=== PATIENT | female | born 1985 | race Caucasian/White ===

== ENCOUNTER 2021-12-22 10:11 | Emergency (ER) | payer OTHER, SELFPAY ==
--- NOTE | ~2021-12-22 | XR_ITS ---
EXAMINATION: XR finger 4th LT min 2V INDICATION: Left fourth finger pain TECHNIQUE: Four views of the left fourth finger are obtained. COMPARISON: None available FINDINGS: There is soft tissue swelling. Bone alignment is normal. There is no fracture. The joint sp aces are normal. IMPRESSION: 1. Soft tissue swelling without acute osseous abnormality. Reviewed, dictated and finalized at location A.
[2021-12-22 10:18] VITALS: BP 135/91; PULSE 75; RESP 18; TEMP 37.1; O2SAT 100
--- NOTE | 2021-12-22 10:36 | ED.UPPEXIN ---
HPI - Extremity Injury (Upper) General Chief Complaint: Extremity Injury, Upper Stated Complaint: Left Hand Injury Time Seen by Provider: 12/22/21 10:30 Source: patient, RN notes reviewed and old records reviewed Mode of arrival: ambulatory Limitations: no limitations History of Present Illness HPI narrative: 36 year old female who presents to [facility] with injury to her left 4th finger which occurred last evening at her home. She states that she went out her door into the garage and her new puppy slipped out the door also. She reports that she was trying to catch the dog and tripped down the steps hitting her left 4th finger on the car. She states that she thinks she hyperextended her finger and now has pain to proximal aspect of finger with swelling noted. Patient states at rest it is not painful but with movement it is a 6/10. Patient has applied ice to her finger and also has taken some Tylenol MD complaint: injury to: left and finger (left 4th finger) Onset (ago): day(s) (last evening) Other Extremity Injury: Left: fingers (4th finger) Other injuries: none Handedness: right Place: outdoors Severity: moderate Severity scale (1-10): 6 (with movement) Relieving factors: rest Exacerbating factors: movement of extremity Context: direct blow Associated symptoms: denies other symptoms Treatments prior to arrival: cold therapy and other (Tylenol) Related Data Home Medications Medication Instructions Recorded Confirmed escitalopram oxalate 10 mg DIRECTED 12/22/21 12/22/21 Allergies Allergy/AdvReac Type Severity Reaction Status Date / Time morphine Allergy Unknown swelling Verified 03/28/19 12:36 to arm(iv site) Review of Systems Review of Systems: CONSTITUTIONAL: Denies fever, chills, or sweats. EYES: Denies visual changes, redness, or discharge. ENT: Denies rhinorrhea, congestion, sore throat, or otalgia. CARDIOVASCULAR: Denies chest pain, palpitations, or edema. RESPIRATORY: Denies cough or dyspnea. GASTROINTESTINAL: Denies abdominal pain, nausea, vomiting, or diarrhea. GENITOURINARY: Denies dysuria or hematuria. SKIN: Denies rash or itching. MUSCULOSKELETAL: Denies back pain,positive for left 4th finger pain, or myalgia. NEUROLOGIC: Denies headache, numbness, or weakness. PSYCHIATRIC: Denies anxiety or depression. All systems reviewed & are unremarkable except as noted in HPI and below PMFSH Past Medical History Medical History (Updated 12/23/21 @ 09:09 by Alyse Snider NP) Anxiety Kidney stones Surgical History Surgical History (Updated 12/23/21 @ 09:05 by Alyse Snider NP) History of appendectomy History of urethral stent Family History Family History (Updated 12/23/21 @ 09:06 by Alyse Snider NP) Mother Arthritis Father Elevated cholesterol Social History Social History (Updated 12/23/21 @ 09:04 by Alyse Snider NP) Smoking status: Never smoker Alcohol intake: current Alcohol use details: social Substance use type: does not use Living arrangements: with family Gender identity (if verbalized by the patient): Female Comments At time of signature, agree with nursing past medical, surgical, social and family history. There is no relevant family history pertinent to the presenting complaint Exam Narrative: GENERAL: Well-appearing, well-nourished, and in no acute distress. HEAD: Normocephalic, atraumatic. EYES: PERRLA and EOMI. ENT: Nares clear, no rhinorrhea or epistaxis. Mucous membranes moist.TM's normal with good light reflex, throat pink with no lesions or tonsil swelling. NECK: Supple. no lymphadenopathy CHEST: Clear to auscultation. No respiratory distress.SAO2 100% on room air HEART: Regular rate and rhythm. No murmur heard. Normal peripheral pulses. ABDOMEN: Soft, nontender, nondistended, normal active bowel sounds. EXTREMITIES: Normal range of motion. No edema.Exception noted to left ring finger with proximal finger swelling and some b
== END 2021-12-22 11:03 | disposition home or self-care (01) ==
PROVIDERS: Emergency Provider Registered Nurse; PCP Internal Medicine
DX: S63.615A Unspecified sprain of left ring finger, initial encounter (principal); W10.8XXA Fall (on) (from) other stairs and steps, initial encounter
CPT/HCPCS: 73140; 99213; G0463